=== PATIENT | female | born 1955 | race African-American/Black ===

== ENCOUNTER 2018-11-07 06:49 | Observation (INO) | payer BC, OTHER ==
[2018-11-05 12:35] LABS: BASOPHILS % 0.6 % (0.0-1.0); EOSINOPHILS # (AUTO) 0.2 (0.0-0.4); EOSINOPHILS % 2.5 % (0.0-6.0); HEMATOCRIT 40.1 % (34.2-44.1); HEMOGLOBIN 12.7 g/dL (12.0-16.0); LYMPHOCYTES # (AUTO) 2.6 (1.0-3.2); LYMPHOCYTES % 37.9 % (18.0-39.1); MEAN CORPUSCULAR HEMOGLOBIN 27.1 pg (28-32); MEAN CORPUSCULAR HGB CONC 31.7 g/dL (31-35); MEAN CORPUSCULAR VOLUME 85.7 fL (81-99); MONOCYTES # (AUTO) 0.5 (0.2-0.8); MONOCYTES % 7.8 % (4.4-11.3); NEUTROPHILS # (AUTO) 3.5 (2.1-6.9); NEUTROPHILS % 50.9 % (38.7-80.0); PLATELET COUNT 299 x10e3/uL (140-360); RED BLOOD COUNT 4.68 x10e6/uL (3.6-5.1); RED CELL DISTRIBUTION WIDTH 15.2 % (11.7-14.4)
[2018-11-05 12:41] LABS: INR 0.99; PROTHROMBIN TIME 13.6 seconds (11.9-14.5)
[2018-11-05 12:42] LABS: PARTIAL THROMBOPLASTIN TIME 27.4 seconds (23.8-35.5)
[2018-11-05 12:48] LABS: ANION GAP 12.9 mmol/L (8-16); BLOOD UREA NITROGEN 17 mg/dL (7-26); BUN/CREATININE RATIO 21 (6-25); CALCIUM 10.4 mg/dL (8.4-10.2); CARBON DIOXIDE 26 mmol/L (22-29); CHLORIDE 106 mmol/L (98-107); CREATININE, SERUM 0.81 mg/dL (0.57-1.11); EST GLOMERULAR FILTRATION RATE > 60 ML/MIN (60-); GLUCOSE 90 mg/dL (74-118); POTASSIUM 3.9 mmol/L (3.5-5.1); SODIUM 141 mmol/L (136-145)
--- NOTE | 2018-11-05 13:31 | Diagnostic Imaging Report ---
EXAMINATION: CHEST 2 VIEWS INDICATION: Pre-operative COMPARISON: None FINDINGS: LINES/TUBES:None LUNGS:The lungs are well-inflated. No focal consolidation or pulmonary edema. PLEURA:No pleural effusion or pneumothorax. MEDIASTINUM:The cardiomediastinal silhouette appears normal in size and shape. BONES/SOFT TISSUES:No acute osseous injury. Degenerative changes of the visualized spine. ABDOMEN:No free air under the diaphragm. IMPRESSION: No focal pneumonia or pulmonary edema. Signed by: Emre Romero MD on 11/05/2018 1:27 PM
[~2018-11-07] VITALS: Ht 167.6 cm; Wt 103.9 kg
[~2018-11-07 06:49] MED LIST: LOSARTAN PO
[2018-11-07] MEDS ORDERED: BUPIVACAINE 0.5%/EPI 30 ML SDV INJ ONE (07:00)
[2018-11-07] MEDS ORDERED: BACITRACIN 50,000 UNIT VIAL ONE (07:01)
[2018-11-07] MEDS ORDERED: THROMBIN FOR SOLN 5,000 UNIT VIAL ONE (07:01)
--- OUTSIDE RECORDS SUMMARY | 2018-11-07 07:02 | XMS REPORT ---
Author Author [facility] Address Unknown Phone Unavailable Care Team Providers Care Application Manager Name Role Phone VANDANA CLIFFORD Unavailable Unavailable Problems This patient has no known problems. Allergies, Adverse Reactions, Alerts This patient has no known allergies or adverse reactions. Medications This patient has no known medications. Results Test Description Test Time Test Comments Text Results Atomic Results Result Comments CHEST 2 VIEWS 2018-11-05 13:26:00 [place] [address] Patient Name: JUVE MARKS MR #: [id number] : 1955 Age/Sex: 63/F Req #: [id number] Adm Physician: Ordered by: VANDANA CLIFFORD MD Report #: [id number] Location: OR Room/Bed: Procedure: [id number] DX/CHEST 2 VIEWS Exam Date: 11/05/18 Exam Time: 1218 REPORT STATUS: Signed EXAMINATION: CHEST 2 VIEWS INDICATION: Pre-operative COMPARISON: None FINDINGS: LINES/TUBES:None LUNGS:The lungs are well-inflated. No focal consolidation or pulmonary edema. PLEURA:No pleural effusion or pneumothorax. MEDIASTINUM:The cardiomediastinal silhouette appears normal in size and shape. BONES/SOFT TISSUES:No acute osseous injury. Degenerative changes of the visualized spine. ABDOMEN:No free air under the diaphragm. IMPRESSION: No focal pneumonia or pulmonary edema. Signed by: Fe Romero MD on 11/05/2018 1:27 PM Dictated By: FE ROMERO MD 1327 Transcribed By: [place] on 11/05/18 1327 COPY TO: VANDANA CLIFFORD MD
[2018-11-07] MEDS ORDERED: CEFAZOLIN SOD 1 GM/NS 50ML 50 ML IV ONE (07:22)
[2018-11-07] MEDS ORDERED: ACETAMINOPHEN 1000 MG/100 ML 100 ML IV ONE (09:50)
--- NOTE | 2018-11-07 09:54 | Diagnostic Imaging Report ---
EXAMINATION: SPINE 1 VW LUMBAR INDICATION: Localization COMPARISON: None FINDINGS: Portable intraoperative crosstable radiograph of the lumbar spine demonstrates opaque instruments overlying the L3 vertebral body and L3-4 disc space. Degenerative changes of the visualized spine. IMPRESSION: Localization as above. Signed by: Emre Romero MD on 11/07/2018 9:51 AM
--- NOTE | 2018-11-07 09:59 | Diagnostic Imaging Report ---
EXAMINATION: SPINE 1 VW LUMBAR INDICATION: Localization COMPARISON: None FINDINGS: Intraoperative portable crosstable radiograph of the lumbar spine shows surgical instruments in the posterior soft tissues directed at L3-4. Otherwise no interval change. IMPRESSION: Localization at L3-4 as above. Signed by: Emre Romero MD on 11/07/2018 9:55 AM
--- NOTE | 2018-11-07 10:06 | Diagnostic Imaging Report ---
EXAMINATION: SPINE 1 VW LUMBAR INDICATION: Localization COMPARISON: None FINDINGS: Intraoperative portable crosstable radiograph of the lumbar spine shows surgical instruments in the posterior soft tissues directed at the posterior elements of L4 otherwise no interval change. IMPRESSION: Localization at posterior elements of L4 as above. Signed by: Emre Romero MD on 11/07/2018 10:02 AM
[2018-11-07] MEDS: LACTATED RINGER'S 1,000 ML IV SCH ×2 (10:08→18:17)
[2018-11-07] MEDS ORDERED: CARISOPRODOL 350 MG TAB PO PRN (10:15)
[2018-11-07] MEDS ORDERED: HYDROMORPHONE 2MG/ML 2 MG/ML ML IV PRN (10:15)
[2018-11-07] MEDS ORDERED: ONDANSETRON HCL INJ 2MG/ML 2ML 2 MG/ML VIAL IV PRN (10:15)
[2018-11-07] MEDS ORDERED: SUGAMMADEX SODIUM 200 MG/2 ML VIAL IV ONE (10:15)
[2018-11-07] MEDS ORDERED: CEPACOL SORE THROAT LOZENGES PO PRN (10:15)
[2018-11-07] MEDS ORDERED: MAGNESIUM/ALUMINUM/SIMETHICONE 30 ML UDC PO PRN (10:15)
[2018-11-07] MEDS ORDERED: PROMETHAZINE HCL (IM) 25 MG/ML VIAL IM PRN (10:15)
[2018-11-07] MEDS ORDERED: ACETAMINOPHEN 325 MG TAB PO PRN (10:15)
[2018-11-07] MEDS ORDERED: FENTANYL CITRATE/PF 100MCG/2 ML INJ ONE ×2 (10:46→19:30)
[2018-11-07] MEDS ORDERED: DIPHENHYDRAMINE HCL INJ 50 MG/ML VIAL ONE (11:17)
[2018-11-07 11:45] VITALS: BP 138/65
--- NOTE | 2018-11-07 11:45 | NUR ---
REC'D PT AAOX3 VIA STRETCHER FROM PACU. PATIENT WALKED TO THE RESTROOM WITH ASSISTANCE AND VOIDED. ON ROOM AIR AND NO S/S OF DISTRESS. IV T THE RIGHT FA 20 GAUGE INTACT AND PATENT. SCDS AND ULI HOSE APPLIED TO BILATERAL LOWER EXTREMITIES. PATIENT REFUSED SCD MONITOR APPLIED. SHE STATED, "I CAN WALK SO I DON'T NEED THEM." PT STATED PAIN LEVEL 6/10 BUT REFUSED PAIN MEDICATION. SHE SAID SHE ONLY WANTED A PILLOW TO PLACE ON HER BACK. DAUGHTER AT THE BEDSIDE. BED IN LOWEST POSITION, SIDE RAILS UPX2, AND CALL CHAMBERLAIN WITHIN REACH.
--- NOTE | 2018-11-07 13:00 | NUR ---
GAVE REPORT TO ONCOMING DAY SHIFT NURSE. PT LAYING IN BED WITH NO S/S OF DISTRESS. DAUGHTER AT BEDSIDE. CALL CHAMBERLAIN WITHIN REACH, BED IN LOWEST POSITION, AND SIDE RAILS UPX2.
[2018-11-07 13:34] VITALS: BP 138/65
[2018-11-07] MEDS: OXYCODONE/ACETAMINOPHEN 5-325 1 EACH TABLET PO PRN ×2 (14:05→20:21)
[2018-11-07] MEDS: CEFAZOLIN SOD 1 GM/NS 50ML 50 ML IV SCH ×2 (14:13→21:32)
--- NOTE | 2018-11-07 15:46 | Operative Report ---
DATE OF PROCEDURE: 11/07/2018 SURGEON: Velasquez Carrillo MD PREOPERATIVE DIAGNOSIS: L3-4 spinal stenosis with neurogenic claudication above the level of previous L4-5 laminectomy, M48.062. POSTOPERATIVE DIAGNOSIS: L3-4 spinal stenosis with neurogenic claudication above the level of previous L4-5 laminectomy, M48.062. PROCEDURES: 1. L3 bilateral decompressive laminectomy and L3-4 bilateral medial facetectomies, 07550. 2. L4 bilateral partial decompressive laminectomy, 74699. ANESTHESIA: General. INDICATIONS: The patient is a 63-year-old woman, who presents with severe L3-4 spinal stenosis above the level of previous L4-5 laminectomy and was taken to the operating room for bilateral decompressive laminectomy. PROCEDURE IN DETAIL: After induction of general anesthesia, the patient was placed on the operating table in prone position over Rizwan frame. Lumbar region was prepped and draped in a sterile fashion. A preoperative x-ray was obtained. A small midline incision was created just above the area of her previous scar. The lumbar fascia was opened along the midline and a subperiosteal dissection was carried out to expose the spinous processes and lamina of L3 and L4. Second and third x-ray confirmed correct localization. Portions of the spinous processes were resected. Retraction was maintained with an expandable Aesculap speculum retractor. A 5 mm reynaldo bur and a high-speed drill was used on the operating microscope to drill the inferior two-thirds of the lamina of L3 and superior one-third of lamina of L4 and the medial rim of the hypertrophic L3-4 facet joints bilaterally. The markedly hypertrophic ligamentum flavum was then carefully dissected off the dura and was resected with a Kerrison rongeur until the dura was fully exposed and decompressed, and the ligamentum flavum in the lateral recesses was also resected as the facet joints were undercut in order to fully expose and decompress the traversing L4 nerve roots. Excellent decompression was achieved. The wound was copiously irrigated with bacitracin solution. Meticulous hemostasis was secured. Retractor was removed. The lumbar fascia was closed with 0 Vicryl suture. Subcutaneous layer was closed with 2-0 Vicryl sutures. The skin was closed with 3-0 Monocryl sutures in subcuticular fashion. Steri-Strips and dressing were applied. The patient was awakened, extubated, and taken to postanesthesia care in stable condition. No intraoperative complications were encountered. Estimated blood loss was 10 mL. Velasquez Carrillo MD PP/RAMA /[id number]
[2018-11-07 16:53] VITALS: BP 129/60
--- NOTE | 2018-11-07 17:34 | NUR ---
Patient notified me that she had blood on her pillow where incision in back is located. Upon assessing dressing, there is blood noted to be coming out of incision. Replaced dressing with new island dressing. Patient tolerated well.
--- NOTE | 2018-11-07 18:57 | NUR ---
Received report from previous nurse. Patient in bed. family at bedside. call light within reach.
[2018-11-07] MEDS ORDERED: PROPOFOL IV EMULSION 10 MG/ML 20 ML VIAL ONE (19:30)
[2018-11-07] MEDS ORDERED: NEOSTIGMINE 5 MG/5ML SYR ONE (19:30)
[2018-11-07] MEDS ORDERED: ONDANSETRON HCL INJ 2MG/ML 2ML 2 MG/ML VIAL ONE (19:30)
[2018-11-07] MEDS ORDERED: MIDAZOLAM HCL 2 MG/2 ML VIAL ONE (19:30)
[2018-11-07] MEDS ORDERED: SEVOFLURANE INHAL SOLN 250 ML PEN BTL ONE (19:30)
[2018-11-07] MEDS ORDERED: DEXAMETHASONE SOD PHOS INJ 4 MG/ML VIAL ONE (19:30)
[2018-11-07] MEDS ORDERED: GLYCOPYRROLATE INJ 1MG/ 5 ML SYR ONE ×2 (19:30)
[2018-11-07] MEDS ORDERED: LIDOCAINE HCL 2% LOCAL INJ 5 ML SDV VIAL INJ ONE (19:30)
[2018-11-07] MEDS ORDERED: ROCURONIUM BROMIDE 10 MG/ML 5ML VIAL ONE (19:30)
[2018-11-07] MEDS ORDERED: CEFAZOLIN SOD 1 GM VIAL ONE (19:30)
[2018-11-07 20:00] VITALS: BP 127/60
[2018-11-07] MEDS ORDERED: ZOLPIDEM TARTRATE 5 MG TAB PO PRN (21:00)
[2018-11-07] MEDS ORDERED: SODIUM CHLORIDE 0.9% 250ML 250 ML ONE (21:58)
[2018-11-08] VITALS: BP 135/63
[2018-11-08] MEDS: LACTATED RINGER'S 1,000 ML IV SCH (02:48)
[2018-11-08 04:00] VITALS: BP 134/61
[2018-11-08] MEDS: CEFAZOLIN SOD 1 GM/NS 50ML 50 ML IV SCH (06:02)
--- NOTE | 2018-11-08 07:05 | NUR ---
GAVE REPORT TO ONCOMING NURSE. CALL LIGHT WITHIN REACH. PATIENT IN BED. DAUGHTER AT THE BEDSIDE.
--- NOTE | 2018-11-08 07:17 | NUR ---
RECEIVED PATIENT AWAKE RESTING IN BED NO SIGNS OF DISTRESS. BED LOW, WHEELS LOCKED, SIDE RAILS X2. CALL LIGHT IN REACH WILL CONTINUE TO MONITOR.
[2018-11-08] MEDS ORDERED: NORCO 7.5-3251 EACH PO (07:36)
[2018-11-08] MEDS ORDERED: ONDANSETRON HCL 4 MG ORAL DISINTEGRATING TAB PO PRN (08:45)
[2018-11-08 08:52] VITALS: BP 152/72
--- NOTE | 2018-11-08 08:56 | NUR ---
REMOVED PATIENTS IV. CATHETER TIP INTACT AND PRESSURE DRESSING APPLIED.
[2018-11-08] MEDS ORDERED: LOSARTAN 20 MG PO SCH (09:00)
[2018-11-08] MEDS ORDERED: LOSARTAN POTASSIUM 25 MG TAB PO SCH (09:00)
--- NOTE | 2018-11-08 09:41 | NUR ---
PATIENT DISCHARGED FROM FACILITY. PATIENT GATHERED ALL PERSONAL BELONGINGS, DISCHARGE INSTRUCTIONS AND FOLLOW UP INFORMATION. PATIENT LEFT UNIT IN WHEELCHAIR AND WENT HOME VIA PRIVATE AUTO. NO SIGNS OF DISTRESS WHEN LEAVING FACILITY.
== END 2018-11-08 09:41 | disposition home or self-care (01) ==
LOC: OR 06:49 → PACU V 10:08 → MED/SURG 11:47
PROVIDERS: ADMIT Neurological Surgery; ATTEND Neurological Surgery
DX: M48.062 Spinal stenosis, lumbar region with neurogenic claudication (principal); Z01.810 Encounter for preprocedural cardiovascular examination; Z01.812 Encounter for preprocedural laboratory examination; Z01.811 Encounter for preprocedural respiratory examination; I10 Essential (primary) hypertension; Z88.5 Allergy status to narcotic agent
CPT/HCPCS: 36415; 63047; 63048; 71046; 72020; 80048; 85025; 85610; 85730; 86850; 86900; 88304; 88311; 93005; G0378 ×2; J0131; J0690 ×3; J1100; J1200; J2001; J2250; J2405; J2704; J3010; J3490; J7050

== ENCOUNTER 2018-11-25 11:17 | Observation (INO) | payer BC, OTHER ==
[2018-11-21 10:49] LABS: BASOPHILS % 0.4 % (0.0-1.0); EOSINOPHILS # (AUTO) 0.2 (0.0-0.4); EOSINOPHILS % 2.5 % (0.0-6.0); HEMATOCRIT 38.5 % (34.2-44.1); HEMOGLOBIN 12.2 g/dL (12.0-16.0); LYMPHOCYTES # (AUTO) 2.7 (1.0-3.2); LYMPHOCYTES % 36.2 % (18.0-39.1); MEAN CORPUSCULAR HEMOGLOBIN 27.3 pg (28-32); MEAN CORPUSCULAR HGB CONC 31.7 g/dL (31-35); MEAN CORPUSCULAR VOLUME 86.1 fL (81-99); MONOCYTES # (AUTO) 0.6 (0.2-0.8); MONOCYTES % 7.7 % (4.4-11.3); NEUTROPHILS % 52.9 % (38.7-80.0); PLATELET COUNT 349 x10e3/uL (140-360); RED BLOOD COUNT 4.47 x10e6/uL (3.6-5.1)
[2018-11-21 11:05] LABS: BLOOD UREA NITROGEN 13 mg/dL (7-26); BUN/CREATININE RATIO 17 (6-25); CALCIUM 10.5 mg/dL (8.4-10.2); CARBON DIOXIDE 27 mmol/L (22-29); CHLORIDE 101 mmol/L (98-107); CREATININE, SERUM 0.75 mg/dL (0.57-1.11); EST GLOMERULAR FILTRATION RATE > 60 ML/MIN (60-); GLUCOSE 116 mg/dL (74-118); SODIUM 137 mmol/L (136-145)
[~2018-11-25] VITALS: Ht 167.6 cm; Wt 100.7 kg
[~2018-11-25 11:17] MED LIST changes: +NORCO 7.5-3251 EACH PO
[2018-11-25] MEDS ORDERED: CEFAZOLIN SOD 1 GM/NS 50ML 100 ML IV ONE (12:24)
[2018-11-25] MEDS ORDERED: IBUPROFEN 800MG/ 250ML 250 ML IV ONE (13:55)
[2018-11-25] MEDS ORDERED: MORPHINE SULFATE INJ 4 MG/ML INJ 1ML IV PRN (14:15)
[2018-11-25] MEDS ORDERED: ACETAMINOPHEN 325 MG TAB PO PRN (14:15)
[2018-11-25] MEDS ORDERED: HYDROCODONE/APAP 5MG-325MG TAB PO PRN (14:15)
[2018-11-25] MEDS ORDERED: ONDANSETRON HCL INJ 2MG/ML 2ML 2 MG/ML VIAL IV PRN (14:15)
[2018-11-25] MEDS ORDERED: FENTANYL CITRATE/PF 100MCG/2 ML INJ ONE ×2 (14:40→16:39)
--- NOTE | 2018-11-25 15:35 | Operative Report ---
DATE OF PROCEDURE: 11/25/2018 SURGEON: Bartolome Daniels MD PREOPERATIVE DIAGNOSIS: Thyromegaly with dysphagia. POSTOPERATIVE DIAGNOSIS: Thyromegaly with dysphagia. PROCEDURES: Right thyroid lobectomy and isthmusectomy. PRODUCTION ASSEMBLY OPERATOR: None. ANESTHESIA: General. INDICATIONS AND FINDINGS: The patient is a 63-year-old female, who presented with complaints of dysphagia, found to have a large thyroid, biopsies which were benign. At Surgery, the patient had a very large right lobe of the thyroid, which was extending posteriorly, compressing her trachea, there were multiple nodules within the right lobe of the thyroid. Pathologic examination revealed them to be benign on initial evaluation. TECHNIQUE: After adequate general endotracheal anesthesia, the patient is in supine position. The neck was prepped and draped in sterile fashion with ChloraPrep solution. Transverse incision was made approximately 2 cm above the sternal notch, carried down through subcutaneous tissue and platysma. Subplatysmal flaps were raised superiorly and inferiorly. Strap muscles were divided in the midline, exposing the isthmus of the thyroid, the strap muscles dissected away from the right lobe of the thyroid, which was noted to be enlarged. There is at least one palpable nodule in the right lobe of the thyroid. The right lobe of the thyroid was mobilized by dividing the middle thyroid gland, mobilized from lateral to medial. The vessels going to the thyroid inferiorly were dissected free and divided between hemoclips. The recurrent laryngeal nerves were identified and preserved. There was inferior parathyroid was identified, this was adherent to the thyroid, this was dissected free and preserved. The gland continued to be dissected away from the recurrent laryngeal nerve. The superior pole vessels at this point were dissected free and divided between hemoclips, and remaining vessels going to the thyroid were divided. The care was taken not to injure the recurrent laryngeal nerves, superior parathyroid also identified and was preserved. As the gland was mobilized, it was free from the trachea all the way to the junction of the isthmus and the left lobe of the thyroid, and isthmus was then divided between clamps and the thyroid was removed, submitted for frozen section, which revealed it to be benign. Recurrent laryngeal nerves were noted to be intact. Hemostasis was seen to be adequate. Examination of left lobe of the thyroid revealed, that it was not enlarged with no palpable nodules. Wounds were irrigated with saline, inspected for hemostasis, which was seen to be adequate. A 10 mm flat Murray-Eddy drain was placed into the wound through a separate stab wound incision beneath the strap muscles. Strap muscles were reapproximated in the midline using 2-0 Vicryl. The platysma was closed with running suture of 3-0 Vicryl. Skin was closed with a running subcuticular suture of 4-0 Vicryl. Steri-Strips and sterile dressing were applied. The patient tolerated the procedure well. Estimated blood loss was 10 mL. There were no complications. All counts were correct. The patient was taken to the recovery room in satisfactory condition. MD YUSRA Reid/PABLOL /[id number] cc: Ulises Taylor MD
[2018-11-25 16:00] VITALS: BP 179/77
[2018-11-25] MEDS ORDERED: GLYCOPYRROLATE INJ 1MG/ 5 ML SYR ONE (16:38)
[2018-11-25] MEDS ORDERED: KETOROLAC TROMETHAMINE 30 MG/ML VIAL ONE (16:38)
[2018-11-25] MEDS ORDERED: ONDANSETRON HCL INJ 2MG/ML 2ML 2 MG/ML VIAL ONE (16:38)
[2018-11-25] MEDS ORDERED: DESFLURANE 240 ML BTL INH ONE (16:38)
[2018-11-25] MEDS ORDERED: NEOSTIGMINE 5 MG/5ML SYR ONE (16:38)
[2018-11-25] MEDS ORDERED: PROPOFOL IV EMULSION 10 MG/ML 20 ML VIAL ONE (16:38)
[2018-11-25] MEDS ORDERED: DEXAMETHASONE SOD PHOS INJ 4 MG/ML VIAL ONE (16:38)
[2018-11-25] MEDS ORDERED: ROCURONIUM BROMIDE 10 MG/ML 5ML VIAL ONE (16:38)
[2018-11-25] MEDS ORDERED: LIDOCAINE HCL 2% LOCAL INJ 5 ML SDV VIAL INJ ONE (16:38)
[2018-11-25] MEDS ORDERED: MIDAZOLAM HCL 2 MG/2 ML VIAL ONE (16:39)
[2018-11-25] MEDS: SODIUM CHLORIDE 0.9% 1000ML 1,000 ML IV SCH (16:54)
[2018-11-25 17:37] VITALS: BP 179/77
[2018-11-25 17:49] VITALS: BP 179/77
[2018-11-25 17:50] VITALS: BP 179/77
[2018-11-25 19:24] VITALS: BP 179/77
--- NOTE | 2018-11-25 19:41 | NUR ---
Pt sitting at side of bed at this time. Pt c/o pain 11/09. Dr. Daniels called for pain medication orders as pt is requesting Motrin be ordered.
[2018-11-25 20:00] VITALS: BP 145/80
--- NOTE | 2018-11-25 20:50 | NUR ---
Dr. Daniels returned call. Order for Motrin 400mg PO q6hr PRN received at this time.
[2018-11-25] MEDS ORDERED: IBUPROFEN 400 MG TAB PO PRN (21:00)
[2018-11-26] VITALS: BP 164/69
[2018-11-26] MEDS: SODIUM CHLORIDE 0.9% 1000ML 1,000 ML IV SCH (01:46)
[2018-11-26 04:00] VITALS: BP 134/63
--- NOTE | 2018-11-26 06:40 | NUR ---
PT GIVEN DISCHARGE INSTRUCTIONS. PT HAS NO QUESTIONS ABOUT DISCHARGE INSTRUCTIONS. PAPER PRESCRIPTION GIVEN TO PATIENT, COPY PLACED IN CHART. IV REMOVED AT THIS TIME WITHOUT COMPLICATION. PT SUSIE DRAIN EMPTIED AT THIS TIME, 15ML COLLECTED. PT DENIES PAIN. PT INFORMED TO USE CALL LIGHT FOR WHEELCHAIR WHEN READY. PT VSS. PT DAUGHTERS PRESENT AT BEDSIDE AND WILL BE DRIVING PT HOME.
[2018-11-26 07:27] VITALS: BP 164/68
--- NOTE | 2018-11-26 07:30 | NUR ---
PT LEAVING UNIT AT THIS TIME BY WHEELCHAIR WITH RN. PT WENT HOME WITH DAUGHTER.
[2018-11-26] MEDS ORDERED: LOSARTAN 50 MG PO SCH (09:00)
[2018-11-26] MEDS ORDERED: LOSARTAN POTASSIUM 25 MG TAB PO SCH (09:00)
--- NOTE | 2018-11-26 10:50 | NUR ---
ASSESSMENT: Spiritual concern Pt worried about her father's health. Pt states her father was having a procedure at a hospital in the [facility]. Pt's at bedside. Intervention: Provided empathic listening and prayer. Outcome: Pt & expressed appreciation for visit. Followed up w/ [facility]. MARLON MOORE Pipe Organ Installer Spiritual Care Department O: [phone] Pager: [phone] ([phone] number calling from)
== END 2018-11-26 07:30 | disposition home or self-care (01) ==
LOC: OR 11:17 → PACU V 14:24 → MED/SURG2 15:54
PROVIDERS: ADMIT Surgery; ATTEND Surgery
DX: E01.0 Iodine-deficiency related diffuse (endemic) goiter (principal); Z01.810 Encounter for preprocedural cardiovascular examination; Z01.812 Encounter for preprocedural laboratory examination; I10 Essential (primary) hypertension; Z88.5 Allergy status to narcotic agent
CPT/HCPCS: 36415; 80048; 85025; 88307; 88329; 88333; 93005; G0378; J0690; J1100; J1885; J2001; J2250; J2405; J3010; J7030